=== PATIENT | female | born 1960 | race African-American/Black ===

== ENCOUNTER 2020-07-04 07:45 | Outpatient (RCR) | payer OTHER, SELFPAY ==
[2020-07-04] MEDS: COVID-19 VACC, MRNA(PFIZER)/PF 30 MCG/0.3 ML SYRINGE IM (10:34)
[2020-07-25] MEDS: COVID-19 VACC, MRNA(PFIZER)/PF 30 MCG/0.3 ML SYRINGE IM (10:30)
== END 2020-09-26 23:59 ==
LOC: IMMUN 07:45
PROVIDERS: PCP Family Medicine; Referring Provider Family Medicine; Visit Provider Family Medicine
DX: Z23 Encounter for immunization (principal)
CPT/HCPCS: 0001A; 0002A; 91300